=== PATIENT | female | born 2000 | race Caucasian/White ===

== ENCOUNTER 2022-04-03 17:58 | Emergency (ER) | payer OTHER ==
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
[2022-04-03 19:58] VITALS: BP 128/96
== END 2022-04-03 20:02 | disposition home or self-care (01) ==
LOC: ED 17:58
DX: S16.1XXA Strain of muscle, fascia and tendon at neck level, initial encounter (principal); V43.52XA Car driver injured in collision with other type car in traffic accident, initial encounter; Y93.89 Activity, other specified
CPT/HCPCS: 99281; 99282

== ENCOUNTER 2024-01-24 13:10 | Outpatient (CLI) | payer OTHER ==
--- NOTE | 2024-01-24 15:22 | Ultrasound Report ---
PROCEDURE: Pelvic w/Transvaginal INDICATIONS: OLIGOMENORRHEA TECHNIQUE: Real-time scanning was performed of the pelvic organs, with image documentation. Additional endovagi nal scanning was necessary due to incomplete visualization of the adnexal and endometrial structures by transabdominal scanning. COMPARISON: None. FINDINGS: Uterus: 7.2 x 2.6 x 3.8 cm. Anteverted positioning. Endometrium measures 5 mm, within normal limits. Nabothian cysts are seen. Ovaries: The right ovary is prominent at 9 cc. There are greater than 12 follicles. Nonenlarged left ovary. Other: No pathologic free fluid. IMPRESSION: No acute pelvic abnormality. Borderline prominent right ovary and 9 to 10 cc with greater than 12 follicles. This is a nonspecific finding, sometimes associated with PCO , correlate with clinical presentation and laboratory testing . Reviewed by: Erwin Burleson MD on 01/24/2024 3:20 PM PDT Approved by: Erwin Burleson MD on 01/24/2024 3:20 PM PDT Station ID: [id number]
== END 2024-01-24 13:11 | disposition home or self-care (01) ==
LOC: DI 13:10
PROVIDERS: ATTEND Student in an Organized Health Care Education/Training Program
DX: N91.5 Oligomenorrhea, unspecified (principal)